=== PATIENT | female | born 1970 | race Caucasian/White ===

== ENCOUNTER 2020-04-03 10:58 | Outpatient (CLI) | payer OTHER, SELFPAY ==
--- NOTE | ~2020-04-03 | MMUS_ITS ---
EXAMINATION: MM screen RT diag LT w henry, US breast LT complete HISTORY: Left breast mass TECHNIQUE: ML, MLO and cc 3-D tomosynthesis images of both breasts were performed and synthetic 2-D i mages were generated. CAD analysis was submitted and interpreted. High resolution complete left breas t ultrasound was performed. COMPARISON: 04/01/2019, 03/27/2018, 03/14/2017 bilateral digital screening mammogram examinations BREAST PARENCHYMAL COMPOSITION: There are scattered areas of fibroglandular density. FINDINGS: MAMMOGRAPHIC FINDINGS: No suspicious mass or architectural distortion, malignant calcification, skin thickening or retractio n or significant new or developing density is detected. ULTRASOUND: 4:00 3 cm from nipple: 3.5 x 4.7 x 5.4 mm sonolucency with through transmission posterior enhancement consistent with simple cyst 4:00 3 cm from nipple: 2.6 x 2.2 and 2.1 x 2.5 mm adjacent simple cysts 7:00 2 cm from nipple: Parallel circumscribed hypoechoic 3.0 x 2.4 x 3.2 mm lesion with no internal v ascularity and no posterior shadowing, likely benign IMPRESSION: 1. Probable benign findings 2. 6 month left breast ultrasound follow-up is recommended BI-RADS category 3, probably benign findings. Reviewed, dictated and finalized at location A. IMPRESSION: 1. Probable benign findings 2. 6 month left breast ultrasound follow-up is recommended BI-RADS category 3, probably benign findings.
== END 2020-04-03 10:59 | disposition home or self-care (01) ==
PROVIDERS: PCP Nurse Practitioner; Visit Provider Nurse Practitioner
DX: N63.20 Unspecified lump in the left breast, unspecified quadrant (principal)
CPT/HCPCS: 76641; 77063; 77065; 77067

== ENCOUNTER 2022-09-07 12:58 | Outpatient (CLI) | payer OTHER, SELFPAY ==
--- NOTE | ~2022-09-07 | MM_ITS ---
EXAMINATION: MM screening baljinder BI w henry HISTORY: Screening TECHNIQUE: Craniocaudal and mediolateral oblique 3-D tomosynthesis images were obtained and synthetic 2-D images were generated. CAD analysis was submitted and interpreted. COMPARISON: Comparison to multiple prior studies sequentially, with oldest reviewed study dated 08/2016. BREAST PARENCHYMAL COMPOSITION: Breast composed of scattered areas of fibroglandular density FINDINGS: The left breast is stable without evidence for malignancy. There is a new mass in the upper outer quadrant of the right breast, middle third. IMPRESSION: 1. New right breast mass, upper outer quadrant. 2. Additional mammographic views and possible breast ultrasound are recommended. BI-RADS Category 0: Incomplete: Needs additional imaging evaluation. Reviewed, dictated and finalized at location A. IMPRESSION: 1. New right breast mass, upper outer quadrant. 2. Additional mammographic views and possible breast ultrasound are recommended . BI-RADS Category 0: Incomplete: Needs additional imaging evaluation.
== END 2022-09-07 12:59 | disposition home or self-care (01) ==
LOC: CHSIMG 13:00
PROVIDERS: PCP Internal Medicine; Visit Provider Nurse Practitioner Family
DX: Z12.31 Encounter for screening mammogram for malignant neoplasm of breast (principal); R92.8 Other abnormal and inconclusive findings on diagnostic imaging of breast
CPT/HCPCS: 77063; 77067

== ENCOUNTER 2022-09-13 09:39 | Outpatient (CLI) | payer OTHER, SELFPAY ==
--- NOTE | ~2022-09-13 | MMUS_ITS ---
EXAMINATION: MM diagnostic baljinder RT w henry, US breast RT limited HISTORY: New right breast mass, upper outer quadrant, reported on 09/07/2022 screening mammogram TECHNIQUE: Additional 3-D tomosynthesis images of the right breast were performed and synthetic 2-D i mages were generated. CAD analysis was submitted and interpreted. High resolution upper outer quadran t and lower outer quadrant right breast ultrasound was performed. COMPARISON: 09/07/2021 bilateral screening mammogram FINDINGS: MAMMOGRAPHIC FINDINGS: Circumscribed approximately 6 x 9.5 mm opacity with halo sign is noted at anterior to mid depth in th e upper outer right breast. No other suspicious mass or architectural distortion or any malignant calcification, skin thickening or retraction is noted. ULTRASOUND: 9:00 6 cm from nipple: Parallel circumscribed sonolucency measuring 5.9 x 10.1 x 7.9 mm, consistent w ith simple cyst 7:00 6 cm from nipple: Irregular hypoechoic lesion measuring approximately 5.3 x 3.2 x 4 mm, with pro minent adjacent vascularity, with some posterior shadowing. This lesion is suspicious. Ultrasound-alirio ded biopsy is recommended. IMPRESSION: 1. Suspicious 7:00 lesion 6 cm from nipple 2. Ultrasound-guided biopsy of right breast 7:00 lesion is recommended BI-RADS category 4, suspicious findings. Dr. King telephoned the mammogram and ultrasound report and ultrasound-guided biopsy recommendation f or the 7:00 lesion on at 1035 hours to [employer]. Reviewed, dictated and finalized at location A. IMPRESSION: 1. Suspicious 7:00 lesion 6 cm from nipple 2. Ultrasound-guided biopsy of right breast 7:00 lesion is recommended BI-RADS category 4, suspicious findings. Dr. King telephoned the mammogram and ultrasound report and ultrasound-guided b iopsy recommendation for the 7:00 lesion on at 1035 hours to [employer] [facility] [employer]. IMPRESSION: 1. Suspicious 7:00 lesion 6 cm from nipple 2. Ultrasound-guided biopsy of right breast 7:00 lesion is recommended BI-RADS category 4, suspicious findings. Dr. King telephoned the mammogram and ultrasound report and ultrasound-guided b iopsy recommendation for the 7:00 lesion on at 1035 hours to [employer].
== END 2022-09-13 09:40 | disposition home or self-care (01) ==
LOC: CHSIMG 09:41
PROVIDERS: PCP Internal Medicine; Visit Provider Nurse Practitioner Family
DX: R92.8 Other abnormal and inconclusive findings on diagnostic imaging of breast (principal)
CPT/HCPCS: 76642; 77061; 77065; G0279

== ENCOUNTER 2023-10-16 13:04 | Outpatient (CLI) | payer SELFPAY ==
--- NOTE | ~2023-10-16 | US_ITS ---
Pelvic ultrasound. Clinical History: Abnormal uterine bleeding Technique: Realtime transabdominal scanning of the pelvis was performed. Color flow Doppler and Doppl er spectral analysis were performed. Findings: The uterus is anteverted. The endometrial stripe has a thickness of 11 mm. Intramural fibr oid measures 2.5 cm in diameter. The right ovary measures 2.8 x 2.7 x 2.4 cm. Right ovarian cyst measures 2.6 cm in diameter. The left ovary is not visualized. No significant left ovarian or adnexal mass is seen. There is no evidence of free fluid in the cul de sac. Impression: 2.5 cm uterine fibroid. 2.6 and a simple right ovarian cyst. Reviewed, dictated and finalized at location . Impression: 2.5 cm uterine fibroid. 2.6 and a simple right ovarian cyst.
== END 2023-10-16 13:05 | disposition home or self-care (01) ==
LOC: CHSIMG 13:12
PROVIDERS: PCP Internal Medicine; Visit Provider Nurse Practitioner Family
DX: N93.9 Abnormal uterine and vaginal bleeding, unspecified (principal); D25.9 Leiomyoma of uterus, unspecified; N83.201 Unspecified ovarian cyst, right side
CPT/HCPCS: 76856

== ENCOUNTER 2024-08-07 11:59 | Outpatient (CLI) | payer OTHER, SELFPAY ==
--- NOTE | ~2024-08-07 | MM_ITS ---
EXAMINATION: MM screening [facility] BI w henry HISTORY: Screening mammogram TECHNIQUE: Craniocaudal and mediolateral oblique 3-D tomosynthesis images were obtained and synthetic 2-D images were generated. CAD analysis was submitted and interpreted. COMPARISON: 09/13/2022, 09/07/2022, 04/01/2019 BREAST PARENCHYMAL COMPOSITION:Not Dense. There are scattered areas of fibroglandular density. FINDINGS: No suspicious mass, calcification, or architectural distortion are identified in either selene ast to suggest malignancy. There has been no suspicious interval change. IMPRESSION: No mammographic evidence of malignancy. Recommend routine screening mammography in one year. BI-RADS Category 1: Negative Reviewed, dictated and finalized at location . [employer] HELPER
--- OUTSIDE RECORDS SUMMARY | 2024-08-07 13:44 | XMS_ITS | Data Portability ---
Author Organization [facility] [place] Address [address] [place] [address] Assessment No assessment recorded. Plan of Treatment Reminders Order Date Submit Date Provider Last Modified By Organization Details Last Modified Time Details Appointments None record ed. Lab None record ed. Referral None record ed. Procedures None record ed. Surgeries None record ed. Imaging None record ed. Medication Orders None record ed. Patient TargetsNo targets recorded. Patient InstructionsNo instructions recorded. Reason for Referral None Reported. Procedures Surgical History Date Name Laterality Status Provider Name and Address Organization Details Recorded Time 4 Date of Last Pap Smear completed [facility] 11/15/2023 16:27:06 3 Date of Last Mammogram completed [facility] 11/15/2023 16:28:40 Imaging Results None recorded. Procedure Notes None recorded. Medical Equipment None Reported. Allergies No known drug allergies Medications Not known to be on any medication Vitals Date Recorded Body height Body mass index (BMI) Body weight Systolic blood pressure Diastolic blood pressure Provider Name and Address Organization Details Last Updated DateTime 11/15/2023 160.02 cm 28.6 kg/m2 10571.81 g 132 mm[Hg] 83 mm[Hg] [facility] 4 16:26:47 Social History None recorded. Functional Status None recorded. Mental Status None recorded. Family History Relationship Description Onset Age of this Age Resolved Age Notes LastModified by Organization Details LastModified Time Father Asthma [email or web address] Not available 16:29:34 Father Tuberculosis dswayne Not availa ble 11/15/2023 16:29:43 Medical History Condition Response Allergies (Food, seasonal, environmental ) N Other N Breast Cancer N Drug/Latex Allergies/Reactions N Blood Transfusion N Dermatologic Disorders N Lung Disease N Defects or Inherited Disease N Breast Problem N Gestational Diabetes N Hematologic disorders N Anesthesia Complications N History of STI N Deep Vein Thrombosis N Polycystic ovary syndrome N Anxiety Disorder N Autoimmune disease N Arthritis N Infertility N Polyps N Acid Reflux (GERD) N History of abnormal pap N Cancer N Stroke N Varicosities N Neurologic/Epilepsy N Endometriosis N High Cholesterol N Headaches N Fibromyalgia N Kidney Disease N Heart Problems N Kidney or Bladder Problems N Thyroid Problems N GI Problems N Eating Disorder N Anemia N Art (IVF or FET) N Psychiatric Illness N Ovarian Cancer N Diabetes N Pulmonary (TB, Asthma) N Hepatitis/Liver Disease N No Past Medical History N Eczema N Urinary Tract Infection N Abuse/Domestic Violence N Asthma N Trauma/Violence N Depression/ depression N Heart Disease N Pre-Eclampsia N Hypertension N Osteoporosis N Thrombophilias N Gynecological History Statement/Question Response Date of Last Mammogram 06/12/2022 Date of LMP 11/04/2023 Sexually Active? N STIs/STDs N HPV Vaccine N Date of Last Pap Smear 08/11/2023 Sexual Problems? N Current Control Method Partner Vas ectomy Desired Control Method None LMP Definite Obstetrics History GPAL:G 2 P 2 0 0 2 Type Value Full Term 2 Living 2 Total 2 Past Encounters Encounter ID Performer Location Encounter Start Date Encounter Closed Date Diagnosis/Indication Diagnosis SNOMED-CT Code Diagnosis ICD10 Code Diagnosis Note [id number] KATY CHING MD [place] [address] [address] 11/15/2023 15:25:31 11/16/2023 09:15:24 Perimenopausal state [id number] 64731 Z78.0 - patient reports bleeding consistent with perimenopa usal state- labs and pelvic us also c/w perimenopa use- patient to return for EMB if heavy and prolonged bleeding recurs Health Concerns Section Related Observation LastModified by Organization Detai ls LastModified Time None Recorded Concern Status LastModified by Organization Details LastModified Time None Recorded Advance Directives Directive None Recorded Payers Encounter Date Sequence Insurance Name Policy Number Policy Mcadams Covered Member ID Mcadams Member ID Guarantor Name 11/15/2023 1 *SELF PAY* Re lindsey Noel Notes Date Note Type Note Provider Name and Address Organization Details Recorded Time 11/15/2023 text/html Patient presents to establish care and discuss heavy bleeding. Had normal periods until April when she had no period until August. In October, she reports heavy bleeding all month. She was changing her pad 4-5 times per day and had heavy cramping. Some episodes of dizziness while bleeding but now improved. Stopped bleeding 10 days ago. No HRT. PCP had US performed that showed normal uterus, 11mm EMS, small 2.5cm fibroid, and small 2cm ovarian cyst, otherwise normal ovaries. FSH/LH upper limits of normal, c/w perimenopausal state. KATY CHING MD [address], [place], [address], [facility] 11/15/2023 23:55:14 OBGyn Episode No OBEpisode recorded.
== END 2024-08-07 12:00 | disposition home or self-care (01) ==
PROVIDERS: PCP Nurse Practitioner
DX: Z12.31 Encounter for screening mammogram for malignant neoplasm of breast (principal)
CPT/HCPCS: 77063; 77067